=== PATIENT | female | born 1960 | race Caucasian/White ===

== ENCOUNTER 2016-06-12 16:23 | Emergency (ER) | payer OTHER ==
[~2016-06-12] VITALS: Wt 89.0 kg
[~2016-06-12 16:23] MED LIST: ALPR0.5T PO; DULO30CA45 PO; IBUP-1542 PO; LEVO75TA5 PO; METF500T4 PO; METO-448 PO; TRAZ100T15 PO; ZOC10 PO
[2016-06-12] MEDS ORDERED: ALBUTEROL 0.5% (NEB) 2.5 MG/0.5 ML AMP INH STA (19:18)
[2016-06-12] MEDS ORDERED: FUROSEMIDE 40 MG INJ IV ONE (19:30)
[2016-06-12 19:48] LABS: ADD SCAN DIFF NO
[2016-06-12 19:52] LABS: BASOPHILS % 0.4 % (0.0-2.0); EOSINOPHILS # 0.2 10^3/ul (0.0-0.5); EOSINOPHILS % 3.2 % (0.0-7.0); HEMATOCRIT 42.9 % (37.0-47.0); HEMOGLOBIN 13.9 g/dl (12.0-16.0); LYMPHOCYTES # 2.8 10^3/ul (0.8-2.9); MEAN CORPUSCULAR HEMOGLOBIN 29.6 pg (29.0-33.0); MEAN CORPUSCULAR HGB CONC 32.4 g/dl (32.0-37.0); MEAN CORPUSCULAR VOLUME 91.5 fl (82.0-101.0); MEAN PLATELET VOLUME 9.1 fl (7.4-10.4); MONOCYTE # 0.6 10^3/ul (0.3-0.9); MONOCYTES % 7.7 % (0.0-11.0); NEUTROPHIL # 3.8 10^3/ul (1.6-7.5); NEUTROPHILS % 51.3 % (39.0-77.0); PLATELET COUNT 264 10^3/UL (140-415); RED BLOOD COUNT 4.69 10^6/ul (4.20-5.40); RED CELL DISTRIBUTION WIDTH 12.9 % (11.5-14.5); WHITE BLOOD COUNT 7.4 10^3/ul (4.8-10.8)
[2016-06-12 20:00] LABS: ALBUMIN 4.2 g/dl (3.3-4.9); CHLORIDE 99 mmol/L (97-110); SODIUM 143 mmol/L (135-144)
[2016-06-12 20:01] LABS: POTASSIUM 4.2 mmol/L (3.5-5.1)
[2016-06-12 20:03] LABS: ALANINE AMINOTRANSFERASE 45 IU/L (13-69); ALBUMIN/GLOBULIN RATIO 1.31; ALKALINE PHOSPHATASE 69 IU/L (42-121); ANION GAP 17 (8-16); ASPARTATE AMINO TRANSFERASE 40 IU/L (15-46); BILIRUBIN,INDIRECT 0.1 mg/dl (0-1.1); BILIRUBIN,TOTAL 0.1 mg/dl (0.2-1.3); BLOOD UREA NITROGEN 17 mg/dl (7-20); CALCIUM 9.5 mg/dl (8.4-10.2); CARBON DIOXIDE 31 mmol/L (21-31); GLUCOSE 123 mg/dl (70-220); TOTAL PROTEIN 7.4 g/dl (6.1-8.1)
--- NOTE | 2016-06-12 20:04 | RADRPT ---
PROCEDURE: XR Chest AP portable CLINICAL INDICATION: Abdominal pain TECHNIQUE: An AP portable radiograph of the chest was submitted. COMPARISON: None. FINDINGS: Support Hardware: None Cardiovascular: The cardiovascular silhouette appears unremarkable. Lung Barney: The lung barney appear clear with no nodule, alveolar infiltrate, or interstitial promi nence evident. Pleural Spaces: No pneumothorax or pleural effusion is identified. Osseous Structures: There is erosion of the distal right clavicle with widening of the AC joint. Soft Tissues: The soft tissues appear generous. IMPRESSION: 1. No evidence of acute cardiopulmonary disease. 2. Erosion of the distal right clavicle resulting in widening of the right AC joint. Physician Jacqueline Date Time Electronically viewed and signed by Physician Jacqueline on 06/12/2016 20:04 /
[2016-06-12 20:13] LABS: B-TYPE NATRIURETIC PEPTIDE 187 PG/ML (0-125)
[2016-06-12] MEDS ORDERED: AZIT500T3 PO (20:16)
[2016-06-12] MEDS ORDERED: ALBU8.5H3 INH (20:16)
--- NOTE | 2016-06-12 20:21 | ERD ---
ER Documentation Chief Complaint Date/Time DATE: 06/12/16 TIME: 20:17 Chief Complaint COUGH AND SOB FOR 2 DAYS. NO FEVERS. NO CP. TROUBLE TAKING DEEP BREATHS HPI 55-year-old woman complaining of nasal congestion, cough, shortness of breath 2 days. Shortness of breath precipitated by exertion. She denies calf or leg swelling, no fevers or chills, no chest pain, no vomiting or diarrhea. Patient does have a history of congestive heart failure and states she has been using her Lasix as prescribed. Patient denies recent antibiotic use or recent travel. ROS All systems reviewed and are negative except as per history of present illness. Medications Home Meds Active Scripts Albuterol Sulfate* (Proair HFA*) 8.5 Gm Hfa.aer.ad, 2 PUFF INH Q4 for COUGH, #1 INHALER Prov:TIFFANIE MASON MD 06/12/16 Azithromycin* (Zithromax*) 500 Mg Tablet, 500 MG PO DAILY for 5 Days, TAB Prov:TIFFANIE MASON MD 06/12/16 Reported Medications Trazodone Hcl* (Trazodone Hcl*) 100 Mg Tablet, 200 MG PO HS Y for INSOMNIA, TAB 03/06/14 Metformin* (Glucophage*) 500 Mg Tab, 500 MG PO BID, TAB 03/06/14 Levothyroxine Sodium* (Levothyroxine Sodium*) 75 Mcg Tablet, 37.5 MCG PO DAILY, TAB 03/06/14 Alprazolam* (Xanax*) 0.5 Mg Tab, 0.5 MG PO Q8H Y for ANXIETY, TAB 01/10/14 Duloxetine Hcl* (Cymbalta*) 30 Mg Capsule.dr, 30 MG PO DAILY, CAP 01/10/14 Metoprolol Tartrate* (Lopressor*) 25 Mg Tab, 25 MG PO BID, TAB 01/10/14 Ibuprofen* (Ibuprofen*) 600 Mg Tablet, 600 MG PO Q8 for PAIN, TAB 01/10/14 Simvastatin (Simvastatin) 10 Mg Tablet, 10 MG PO HS, TAB 01/10/14 Allergies Allergies: Coded Allergies: No Known Allergy (Unverified , 03/06/14) PMhx/Soc Obesity, psychiatric illness, congestive heart failure, hypothyroidism, anxiety , hypertension, diabetes mellitus, history of bundle branch block History of Surgery: Yes (RIGHT SHOULDER WITH A ROTATOR CUFF REPAIR) Anesthesia Reaction: No Hx Neurological Disorder: No Hx Respiratory Disorders: No Hx Cardiac Disorders: Yes (HTN , CHF) Hx Psychiatric Problems: Yes (DEPRESSION, AND ANXIETY) Hx Miscellaneous Medical Probl: Yes (FREQUENT HEADACHES) Hx Alcohol Use: Yes (BEER AND VODKA, APPROX. 3 GLASSES PER DAY) Hx Substance Use: Yes (ALCOHOL ABUSE- BEER, VODKA) Hx Tobacco Use: No Smoking Status: Unknown if ever smoked FmHx Family History: No diabetes Physical Exam Vitals Vital Signs Date Time Temp Pulse Resp B/P Pulse Ox O2 Delivery O2 Flow Rate FiO2 06/12/16 19:29 98 3.0 06/12/16 19:29 83 22 98 Nasal Cannula 3.0 06/12/16 19:25 Nasal Cannula 2.0 06/12/16 16:26 98.8 101 21 135/69 98 Physical Exam GENERAL: Well-developed, well-nourished, well-hydrated, in no apparent distress , looks nontoxic in appearance HEENT: Moist mucous membranes, pink conjunctiva, no cervical spine tenderness or step-off deformities, no goiter, no jaundice or icterus, extraocular movements intact without pain. No submandibular induration, and no pharyngeal erythema NEURO: Alert and oriented 3, cranial nerves II through XII intact bilaterally, pupils equal round reactive to light, no focal deficits or facial asymmetry, sensation intact distally Strength 5/5 in upper and lower extremities bilaterally CARDIAC: Regular rate and rhythm, no murmurs rubs or gallops LUNGS: Scattered wheezes bilaterally, no crackles or stridor ABDOMEN: Soft nontender, no guarding, no rigidity, no rebound, no psoas sign no obturator sign. Normoactive bowel sounds SKIN: Warm and dry to touch, no abrasions, contusions, or hematomas, no lacerations, no ecchymosis, no target lesions, and without ulcers EXTREMITIES: No clubbing cyanosis or edema, calves are bilaterally symmetrical, no Homans sign, no popliteal cord sign. Distal pulses equal and bilateral PSYCH: Normal affect without agitation or irritability Result Diagram: 06/12/16192906/12/161929 Results 24 hrs Laboratory Tests Test 06/12/16 19:30 Alanine Aminotransferase (ALT/SGPT) 45IU/L Albumin 4.2g/dl Albumin/Globulin Ratio 1.31 Alkaline Phosphatase 69IU/L Anion Gap 17 Aspartate Amino Transf (AST/SGOT) 40IU/L B-Type Natriuretic Peptide 187PG/ML Basophils # 0.010^3/ul Basophils % 0.4% Blood Urea Nitrogen 17mg/dl Calcium Level 9.5mg/dl Carbon Dioxide Level 31mmol/L Chloride Level 99mmol/L Creatinine 0.70mg/dl Direct Bilirubin 0.00mg/dl Eosinophils # 0.210^3/ul Eosinophils % 3.2% Globulin 3.20g/dl Glucose Level 123mg/dl Hematocrit 42.9% Hemoglobin 13.9g/dl Indirect Bilirubin 0.1mg/dl Lipase 100U/L Lymphocytes # 2.810^3/ul Lymphocytes % 37.0% Mean Corpuscular Hemoglobin 29.6pg Mean Corpuscular Hemoglobin Concent 32.4g/dl Mean Corpuscular Volume 91.5fl Mean Platelet Volume 9.1fl Monocytes # 0.610^3/ul Monocytes % 7.7% Neutrophils # 3.810^3/ul Neutrophils % 51.3% Nucleated Red Blood Cells # 0.010^3/ul Nucleated Red Blood Cells % 0.0/100WBC Platelet Count 71711^3/UL Potassium Level 4.2mmol/L Red Blood Count 4.6910^6/ul Red Cell Distribution Width 12.9% Sodium Level 143mmol/L Total Bilirubin 0.1mg/dl Total Protein 7.4g/dl Troponin I Pending White Blood Count 7.410^3/ul Current Medications Medications (Trade) Dose Ordered Sig/Kamlesh Route PRN Reason Start Time Stop Time Status Last Admin Dose Admin Albuterol (Proventil 0.5% (Neb)) 10 mg ONCE STAT INH 06/12/16 19:18 06/12/16 19:20 DC 06/12/16 19:29 Furosemide (Lasix) 60 mg ONCE ONCE IV 06/12/16 19:30 06/12/16 19:31 DC 06/12/16 19:33 Procedures/MDM IV line was established patient was placed on compliance monitor rhythm strip revealed a sinus rhythm at about 90 bpm with upright P and T waves. Patient was afebrile. EKG performed, read by me revealed a normal sinus rhythm at 90 bpm, left axis deviation, and intraventricular block with a QRS duration of 140 ms, no concerning ST elevations or depressions noted. Chest X-ray 1V Interpreted by me: Soft Tissue: No acute abnormalities Bones: No acute abnormalities Mediastinum/Cardiac Silhouette/Lungs: No acute abnormalities I administered furosemide 60 mg IV 1 as well as albuterol 10 mg via nebulizer with improvement in her symptoms. CBC and electrolytes were normal, BNP was low, troponin was negative, liver function tests were normal. Oxygen saturation was normal on room air after treatment, blood pressure was within normal limits, respiratory rate was 18 breaths per minute and normal. Differential diagnoses considered, included but not limited to acute coronary syndrome, pulmonary embolism, aortic dissection, abdominal aortic aneurysm, sepsis, stroke, meningitis, encephalitis, pneumonia, appendicitis, cholecystitis , bowel obstruction, pyelonephritis, nephrolithiasis, cystitis, as well as metabolic, hematologic, and electrolyte abnormalities. As well as abscess, cellulitis, fractures, and dislocations. Patient feels much better at this time, and vital signs are normal, symptoms have improved. I did give strict instructions to return to the ED if symptoms continue or worsen, patient will otherwise follow-up with primary care physician. Patient understood instructions and agreed to plan. Departure Diagnosis: Primary Impression: Bronchitis Condition: Good Patient Instructions: Bronchitis With Wheezing (Adult) TIFFANIE MASON MD Jun 12, 2016 20:21
[2016-06-12 20:23] LABS: TROPONIN-I < 0.010 ng/ml (0.00-0.12)
[2016-06-12] MEDS ORDERED: ALPR0.254 PO (20:34)
[2016-06-12] MEDS ORDERED: ASPI81TA3 PO (20:35)
[2016-06-12] MEDS ORDERED: FURO20TA3 PO (20:36)
[2016-06-12] MEDS ORDERED: CARV25TA79 PO (20:37)
[2016-06-12] MEDS ORDERED: OMEP20CA16 PO (20:38)
[2016-06-12] MEDS ORDERED: ATOR80TA75 PO (20:38)
[2016-06-12] MEDS ORDERED: LOSA50TA6 PO (20:38)
[2016-06-12] MEDS ORDERED: DULO60CA59 PO (20:39)
[2016-06-12 20:45] VITALS: BP 104/79; PULSE 90; RESP 18; TEMP 98.8
== END 2016-06-12 20:47 | disposition home or self-care (01) ==
LOC: E/R 16:23
DX: J20.9 Acute bronchitis, unspecified (principal); I10 Essential (primary) hypertension; I50.9 Heart failure, unspecified; E03.9 Hypothyroidism, unspecified; E11.9 Type 2 diabetes mellitus without complications; E66.9 Obesity, unspecified; Z79.84 Long term (current) use of oral hypoglycemic drugs
CPT/HCPCS: 36415; 71010; 80053; 83690; 83880; 84484; 85025; 93005; 94644; 96374; J1940; Z7502; Z7610

== ENCOUNTER 2017-04-15 10:51 | Emergency (ER) | END 2017-04-15 13:49 | disposition home or self-care (01) ==